=== PATIENT | female | born 1995 | race Caucasian/White ===

== ENCOUNTER 2018-08-18 15:52 | Emergency (ER) | payer OTHER ==
[~2018-08-18] VITALS: Ht 170.2 cm; Wt 59.0 kg
[2018-08-18 16:22] LABS: BILIRUBIN,URINE NEGATIVE (NEGATIVE); CLARITY,URINE CLEAR; COLOR,URINE YELLOW; GLUCOSE, URINE (UA) NEGATIVE (NEGATIVE); KETONES,URINE 1+ (NEGATIVE); LEUKOCYTE ESTERASE ,URINE NEGATIVE (NEGATIVE); NITRITE,URINE NEGATIVE (NEGATIVE); PH,URINE 6 (5-9); PROTEIN,URINE 1+ (NEGATIVE); UROBILINOGEN,URINE NORMAL (NORMAL)
[2018-08-18 16:33] LABS: BACTERIA,URINE TRACE /HPF; RBC,URINE 0-2 /HPF
[2018-08-18 16:34] LABS: SQUAMOUS EPITHELIAL CELL,UR 0-2 /HPF
--- NOTE | 2018-08-18 16:52 | ED Abdominal Pain ---
General Chief Complaint: Abdominal/GI Problems Stated Complaint: TEAR IN ABDOMEN Nursing Triage Note: Pt ambulated to rm 10. Pt sent from work. Pt states pt began having abdominal cramping on the lower L side last night that felt worse when pt pushed on abdomen. Pt also states pt has had back pain for several months. Pt states pt went to work today and told employer pt could not lift anything. Pt states employer told pt, "to get out there." Pt states when lifting pt felt like something tore in the abdomen. Sepsis Screen: No Definite Risk Source of Information: Patient Exam Limitations: No Limitations History of Present Illness Date Seen by Provider: Aug 18, 2018 Time Seen by Provider: 16:00 Initial Comments This 23-year-old young lady presents to the emergency room with complaints of left lower quadrant pain that started last night. She noticed some cramping and pain while at rest. She pushed on the left lower quadrant which caused a tearing sensation in increase in pain. Pain has intensified since then. She had a hard time working today at [employer] because of the pain. She walks bent at the waist has it is painful to stand straight. She's been having lower back pain for a couple of months as well. Her mother has recently been diagnosed with Klippel-Feil syndrome. Grandmother who accompanies the patient states that patient was instructed to get screened at some point in the future. Patient denies any recent sexual activity. She states it is been 8 months since her last intercourse. She is on the Depo-Provera injection and received her last injection about 2 weeks ago. She denies any urinary or vaginal symptoms. She denies nausea, vomiting, diarrhea, or constipation. Her last bowel movement was this morning and was normal. Allergies and Home Medications Allergies Coded Allergies: No Known Drug Allergies (Unverified , 08/18/18) Patient Home Medication List Home Medication List Reviewed: Yes Review of Systems Review of Systems Constitutional: no symptoms reported EENTM: No Symptoms Reported Respiratory: No Symptoms Reported Cardiovascular: No Symptoms Reported Gastrointestinal: No Symptoms Reported Genitourinary: See HPI Musculoskeletal: no symptoms reported Skin: no symptoms reported Psychiatric/Neurological: No Symptoms Reported Endocrine: No Symptoms Reported Hematologic/Lymphatic: No Symptoms Reported Past Bkhwyaa-Alvnfa-Fgkfzl Hx Past Med/Social Hx: Reviewed and Corrections made Patient Social History Alcohol Use: Denies Use Recreational Drug Use: No 2nd Hand Smoke Exposure: No Recent Foreign Travel: No Contact w/Someone Who Travel: No Recent Infectious Disease Expo: No Recent Hopitalizations: No Seasonal Allergies Seasonal Allergies: Yes Past Medical History Surgeries: Yes Ear Surgery Respiratory: No Cardiac: No Neurological: No : No Reproductive Disorders: No Genitourinary: No Gastrointestinal: No Musculoskeletal: No Endocrine: No HEENT: No Cancer: No Psychosocial: Yes (panic attacks) Anxiety, Depression Integumentary: No Physical Exam Vital Signs Vital Signs - First Documented 08/18/18 16:02 Temp 98.8 Pulse 96 Resp 18 B/P (MAP) 113/73 (86) Pulse Ox 100 O2 Delivery Room Air Capillary Refill : Less Than 3 Seconds Height/Weight/BMI Height: 5'7.00" Weight: 130lbs. oz. 58.369914oi; BMI Method:Stated General Appearance: WD/WN, no apparent distress HEENT: normal ENT inspection Neck: normal inspection Respiratory: lungs clear, normal breath sounds, no respiratory distress, no accessory muscle use Cardiovascular: regular rate, rhythm, no edema, no murmur Gastrointestinal: normal bowel sounds, soft; No distended; guarding, tenderness (focused on the left lower quadrant), other (positive psoas sign bilaterally, left greater than right) Extremities: normal inspection, no pedal edema Neurologic/Psychiatric: yard jacker II-XII nml as tested, no motor/sensory deficits, alert, normal mood/affect, oriented x 3 Skin: normal color, warm/dry Progress/Results/Core Measures Results/Orders Lab Results Laboratory Tests Test 08/18/18 16:11 08/18/18 16:53 Range/Units Urine Color YELLOW Urine Clarity CLEAR Urine pH 6 5-9 Urine Specific [place] 1.015 L 1.016-1.022 Urine Protein 1+ H NEGATIVE Urine Glucose (UA) NEGATIVE NEGATIVE Urine Ketones 1+ H NEGATIVE Urine Nitrite NEGATIVE NEGATIVE Urine Bilirubin NEGATIVE NEGATIVE Urine Urobilinogen NORMAL NORMAL MG/DL Urine Leukocyte Esterase NEGATIVE NEGATIVE Urine RBC (Auto) 1+ H NEGATIVE Urine RBC 0-2 /HPF Urine WBC NONE /HPF Urine Squamous Epithelial Cells 0-2 /HPF Urine Crystals NONE /LPF Urine Bacteria TRACE /HPF Urine Casts NONE /LPF Urine Mucus SMALL H /LPF Urine Culture Indicated NO Urine Test NEGATIVE NEGATIVE White Blood Count 7.1 4.3-11.0 10^3/uL Red Blood Count 4.78 4.35-5.85 10^6/uL Hemoglobin 14.3 11.5-16.0 G/DL Hematocrit 43 35-52 % Mean Corpuscular Volume 89 80-99 FL Mean Corpuscular Hemoglobin 30 25-34 PG Mean Corpuscular Hemoglobin Concent 34 32-36 G/DL Red Cell Distribution Width 12.5 10.0-14.5 % Platelet Count 256 130-400 10^3/uL Mean Platelet Volume 9.0 7.4-10.4 FL Neutrophils (%) (Auto) 49 42-75 % Lymphocytes (%) (Auto) 40 12-44 % Monocytes (%) (Auto) 8 0-12 % Eosinophils (%) (Auto) 3 0-10 % Basophils (%) (Auto) 1 0-10 % Neutrophils # (Auto) 3.4 1.8-7.8 X 10^3 Lymphocytes # (Auto) 2.8 1.0-4.0 X 10^3 Monocytes # (Auto) 0.6 0.0-1.0 X 10^3 Eosinophils # (Auto) 0.2 0.0-0.3 10^3/uL Basophils # (Auto) 0.0 0.0-0.1 10^3/uL Sodium Level 139 135-145 MMOL/L Potassium Level 3.5 L 3.6-5.0 MMOL/L Chloride Level 108 H 98-107 MMOL/L Carbon Dioxide Level 20 L 21-32 MMOL/L Anion Gap 11 5-14 MMOL/L Blood Urea Nitrogen 15 7-18 MG/DL Creatinine 0.83 0.60-1.30 MG/DL Estimat Glomerular Filtration Rate > 60 BUN/Creatinine Ratio 18 Glucose Level 85 70-105 MG/DL Calcium Level 9.5 8.5-10.1 MG/DL Corrected Calcium 8.5-10.1 MG/DL Total Bilirubin 0.7 0.1-1.0 MG/DL Aspartate Amino Transf (AST/SGOT) 19 5-34 U/L Alanine Aminotransferase (ALT/SGPT) 15 0-55 U/L Alkaline Phosphatase 51 40-136 U/L C-Reactive Protein High Sensitivity 0.12 0.00-0.50 MG/DL Total Protein 7.2 6.4-8.2 GM/DL Albumin 4.7 H 3.2-4.5 GM/DL Serum Test, Qualitative NEGATIVE NEGATIVE My Orders Orders - REEMA LOWERY MD Us Pelvic (Non Ob)03720 (08/18/18 16:07) Ua Culture If Indicated (08/18/18 16:08) Urine Bedside (08/18/18 16:08) Hcg,Qualitative Urine (08/18/18 16:17) Cbc With Automated Diff (08/18/18 16:46) Comprehensive Metabolic Panel (08/18/18 16:46) Hs C Reactive Protein (08/18/18 16:46) Saline Lock/Iv-Start (08/18/18 16:46) Fentanyl Injection (Sublimaze Injection (08/18/18 17:00) Hcg,Qualitative Serum (08/18/18 16:52) Ketorolac Injection (Toradol Injection) (08/18/18 18:00) Medications Given in ED Current Medications Medications Dose Ordered Sig/Anneliese Route Start Time Stop Time Status Last Admin Dose Admin Fentanyl Citrate 50 mcg ONCE ONCE IVP 08/18/18 17:00 08/18/18 17:01 DC 08/18/18 17:01 50 MCG Vital Signs/I&O 08/18/18 16:02 Temp 98.8 Pulse 96 Resp 18 B/P (MAP) 113/73 (86) Pulse Ox 100 O2 Delivery Room Air Blood Pressure Mean: 86 Progress Progress Note #1: Time: 16:55 Progress Note Patient was taken to ultrasound for evaluation of the pelvic pain. Unfortunately, the left ovary was not seen well. No significant free fluid was seen in the pelvis. Patient was reexamined and found to still be guarding in the left lower quadrant. She had pain with heel strike bilaterally and had bilateral psoas sign. Urine gave no further direction as to the cause of her pain. We discussed options which might include blood work and CT scan for further evaluation. Patient elects to have blood work done at this time and may consider CT scan if blood work is abnormal. She is being given fentanyl for pain. Patient is also having some anxiety. We will treat that adequately if the fentanyl does not calm her anxiety. Progress Note #2: Time: 17:47 Progress Note Labs were reviewed and were unremarkable. Patient's pain has improved with fentanyl but is still present. She was reexamined and found to still have point tenderness in the left lower quadrant. She was offered CT scan but declines at this time. She would like to conservatively treat her pain and return to care if symptoms worsen. She was given strict return precautions. Toradol was ordered to give before departure. Diagnostic Imaging Diagonstic Imaging: Ultrasound Plain Films/CT/US/NM/MRI: pelvis Comments Pelvic ultrasound was discussed with the electronics technician apprentice and report reviewed. The images may have been cross labeled on the worksheet sent to the radiologist as the findings reported by the radiologist our office and that reported by the electronics technician apprentice. I did call the electronics technician apprentice and confirmed that her verbal report was correct. Patient has a normal-appearing right ovary and a nonvisualized left ovary. There was no significant free fluid in the pelvis. Departure Impression Primary Impression: Left lower quadrant pain Disposition: 01 HOME, SELF-CARE Condition: Improved Departure-Patient Inst. Decision time for Depature: 17:46 Referrals: UNKNOWN (PCP) Primary Care Physician Patient Instructions: Acute Abdomen (Belly Pain), Adult (DC) Add. Discharge Instructions: Drink plenty of clear liquids. You may take ibuprofen up to 600 mg every 6 hours as needed for pain. Add Tylenol (acetaminophen) up to 1000 mg every 6 hours as needed for additional pain relief. Have a low threshold for returning for further evaluation if you have worsening symptoms including development of worsening pain, vomiting, diarrhea, temperature over 100, or any other concerning symptoms. Follow-up with your doctor or return to the ER tomorrow if not improving. All discharge instructions reviewed with patient and/or family. Voiced understanding. REEMA LOWERY MD Aug 18, 2018 16:52
--- NOTE | 2018-08-18 16:58 | Diagnostic Imaging Report ---
PROCEDURE: US PELVIC (NON OB) TECHNIQUE: Multiple real-time grayscale images were obtained over the pelvis in various projections transabdominally. INDICATION: Pain. The right ovary could not be identified, the left grossly unremarkable. There is no evidence for adnexal torsion. There is no free fluid. There is no myometrial mass. The endometrium is unremarkable. The uterus incidentally noted, retroflexed. IMPRESSION: Nonvisualization of the right ovary. No pathological finding demonstrated. Endometrial stripe 4 mm. Dictated by: Dictated on workstation # [id number]
[2018-08-18] MEDS ORDERED: fentaNYL INJECTION 100 MCG/2 ML AMP IVP ONE (17:00)
[2018-08-18 17:02] LABS: BASOPHILS % (AUTO) 1 % (0-10); EOSINOPHILS # (AUTO) 0.2 10^3/uL (0.0-0.3); EOSINOPHILS % (AUTO) 3 % (0-10); HEMATOCRIT 43 % (35-52); HEMOGLOBIN 14.3 G/DL (11.5-16.0); LYMPHOCYTES # (AUTO) 2.8 X 10^3 (1.0-4.0); LYMPHOCYTES % (AUTO) 40 % (12-44); MEAN CORPUSCULAR HEMOGLOBIN 30 PG (25-34); MEAN CORPUSCULAR HGB CONC 34 G/DL (32-36); MEAN CORPUSCULAR VOLUME 89 FL (80-99); MONOCYTES # (AUTO) 0.6 X 10^3 (0.0-1.0); MONOCYTES % (AUTO) 8 % (0-12); NEUTROPHILS # (AUTO) 3.4 X 10^3 (1.8-7.8); NEUTROPHILS % (AUTO) 49 % (42-75); PLATELET COUNT 256 10^3/uL (130-400); RED BLOOD COUNT 4.78 10^6/uL (4.35-5.85); RED CELL DISTRIBUTION WIDTH 12.5 % (10.0-14.5); WHITE BLOOD COUNT 7.1 10^3/uL (4.3-11.0)
[2018-08-18 17:19] LABS: ALANINE AMINOTRANSFERASE 15 U/L (0-55); ALBUMIN 4.7 GM/DL (3.2-4.5); ALKALINE PHOSPHATASE 51 U/L (40-136); BILIRUBIN,TOTAL 0.7 MG/DL (0.1-1.0); BUN/CREATININE RATIO 18; CALCIUM 9.5 MG/DL (8.5-10.1); CARBON DIOXIDE 20 MMOL/L (21-32); CHLORIDE 108 MMOL/L (98-107); CREATININE SERUM 0.83 MG/DL (0.60-1.30); GFR ESTIMATED > 60; GLUCOSE 85 MG/DL (70-105); POTASSIUM 3.5 MMOL/L (3.6-5.0); SODIUM 139 MMOL/L (135-145); TOTAL PROTEIN 7.2 GM/DL (6.4-8.2)
[2018-08-18] MEDS ORDERED: KETOROLAC 30 MG/ML VIAL IVP ONE (18:00)
[2018-08-18 18:54] VITALS: BP 102/68
== END 2018-08-18 18:16 | disposition home or self-care (01) ==
LOC: ER 15:55
DX: R10.32 Left lower quadrant pain (principal); F41.0 Panic disorder [episodic paroxysmal anxiety]; F32.9 Major depressive disorder, single episode, unspecified
CPT/HCPCS: 36415; 76856; 80053; 81000; 84703; 85025; 86141; 96374; 96375